=== PATIENT | male | born 1980 | race Asian ===

== ENCOUNTER 2017-07-12 21:35 | Emergency (ER) | payer MEDICAID, MEDICARE, OTHER ==
[2017-07-12 21:47] VITALS: BP 150/98
[2017-07-12] MEDS ORDERED: Diphtheria,Pertussis(Acell),Tetanus Vaccine 0.5 ML SDV IM ONE (22:03)
[2017-07-12] MEDS ORDERED: Bacitracin Oint 1 GM U/D Packet TOP ONE (22:03)
[2017-07-12] MEDS ORDERED: Acetaminophen 500 MG Tab PO ONE (22:03)
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
== END 2017-07-12 22:25 | disposition home or self-care (01) ==
LOC: JP.ED 21:35
DX: S01.01XA Laceration without foreign body of scalp, initial encounter (principal); Z23 Encounter for immunization
CPT/HCPCS: 90471; 90715; 99283; A9270